=== PATIENT | male | born 1955 | race African-American/Black ===

== ENCOUNTER → 2016-07-09 | Outpatient (CLI) | payer BC ==
[~2016-07-09] MED LIST: ACET-1256 PO; CYAN100020 PO; FELO10TA2 PO; HYDR-4717 PO; LEVO150T PO; MRLP120 PO; SIMV20TA2 PO
--- NOTE | 2016-07-09 21:14 | DIAGNOSTIC IMAGING REPORT ---
RIGHT HAND MIN 3 VIEWS ROUTINE, LEFT HAND MIN 3 VIEWS ROUTINE CLINICAL HISTORY: Bilateral hand pain. Fall. COMPARISON STUDY: None. FINDINGS: No acute fracture or dislocation within the right or left hand. Mild soft tissue swelling within the thumbs. No radiopaque foreign bodies. IMPRESSION: No acute fracture or dislocation within the right or left hand. Electronically signed by: Jorje Phoenix M.D. 07/09/2016 9:12 PM Dictated Date/Time: 07/09/2016 9:07 PM
== END | disposition home or self-care (01) ==
LOC: C.RAD 20:38
PROVIDERS: ATTEND Family Medicine
DX: M79.641 Pain in right hand (principal); M79.642 Pain in left hand; W19.XXXA Unspecified fall, initial encounter

== ENCOUNTER → 2017-05-13 | Outpatient (CLI) | payer BC ==
--- NOTE | 2017-05-13 14:37 | DIAGNOSTIC IMAGING REPORT ---
RIGHT KNEE 2 VIEWS HISTORY: Right knee pain. COMPARISON: None. FINDINGS: There is no fracture or dislocation. No significant knee effusion. Mild patellofemoral osteoarthritis. Calcification adjacent to the lateral femoral condyle may be due to an old injury. This measures 1 cm. IMPRESSION: 1. No acute fracture or dislocation within the right knee. 2. Calcification adjacent to the lateral femoral condyle is nonspecific but may be due to an old injury. Electronically signed by: Jorje Phoenix M.D. 05/13/2017 2:35 PM Dictated Date/Time: 05/13/2017 2:34 PM
== END | disposition home or self-care (01) ==
LOC: C.RAD1850 14:04
DX: M25.561 Pain in right knee (principal); M25.861 Other specified joint disorders, right knee

== ENCOUNTER → 2017-06-01 | Day surgery (SDC) | payer BC, OTHER ==
[~2017-06-01] VITALS: Ht 172.7 cm; Wt 104.0 kg
[2017-06-01] VITALS (7 sets, daily range): BP systolic 80–101; BP diastolic 54–62; PULSE 58–73; TEMP 36.4–36.8; O2SAT 96–99; Ht 172.7 cm; Wt 104.0 kg
[~2017-06-01] MED LIST changes: +CLINDAMYCIN 600 MG/54 ML D5W IV SCH; +D5W AND 1/4NSS 1,000 ML IV SCH; +FENTANYL CITRATE INJ 50 MCG/1 ML 2 ML VIAL IV ONE; +FENTANYL CITRATE INJ 50 MCG/1 ML 2 ML VIAL ONE; +LIDOCAINE HCL 1% 20 ML VIAL INJ ONE; +MIDAZOLAM HCL 1 MG/ML 2ML VIAL IV ONE; +MIDAZOLAM HCL 1 MG/ML 2ML VIAL ONE; +OPTIRAY 300 IV ONE; +ORM MISCELLANEOUS MED XX ONE
--- NOTE | 2017-06-01 05:49 | History and Physical ---
History & Physical Date of Service Jun 01, 2017. History & Physical CC: End stage renal disease, malfunctioning left arm fistula HPI: Mr. Cary had a left arm fistula done two years prior to this. He is now having problems with the fistula at dialysis. The patient denies other complaints at this time including headaches, fevers, chills, dizziness, chest pain, shortness of breath, abdominal pain, nausea, vomiting, diarrhea, constipation, dysuria, hematuria, rest pain, claudication or other complaints. ALLERGIES: PENICILLIN. His home medications are reconciled in the chart and include the following: Felodipine, Flintstones chewable vitamins, hydralazine, MiraLax, pantoprazole, simvastatin, Synthroid and vitamin B12. His past medical history is positive for benign prostatic hyperplasia, chronic kidney disease stage IV, congestive heart failure, diabetes mellitus, diabetic retinopathy, gastroesophageal reflux disease, hyperlipidemia, hypertension, hypothyroidism, mitral regurgitation, morbid obesity. His past surgical history is positive for a laparoscopic sleeve gastrectomy, right tunnel release, partial colectomy. His social history is negative for tobacco, alcohol or drug use. The patient's family history is positive for diabetes in his brother, sister, father, mother, hypertension in his father. His review of systems is negative for fevers, sweats, or exercise intolerance. He does admit weight loss due to his recent surgery. The patient denies abnormal moles or rashes, vision changes, photophobia, ear pain, sinus problems or sore throat, cough, shortness of breath, hemoptysis or wheezing, chest pain, palpitations, edema or syncope, abdominal pain, nausea, vomiting, diarrhea, constipation, dysuria, hematuria. He denies abdominal pain, nausea, vomiting, diarrhea, constipation, dysuria, hematuria, muscle weakness, headaches, dizziness, numbness or seizures. On physical exam, his vital signs today were as follows: Blood pressure 140/70 with a heart rate of 71, oxygenation 98% on room air. Constitutional: In general, patient is an obese but healthy-appearing, well-nourished, well- developed middle-aged male in no acute distress. He ambulates without assistance and is active, alert and oriented x4 with normal recent and remote memory. His head is normocephalic and atraumatic. His eyes are EOMI. His ENT exam demonstrates no hearing loss, rhinorrhea or pharyngeal erythema. His neck was supple, nontender with midline trachea without masses or crepitus. His lung exam demonstrates no dyspnea. They are clear to auscultation bilaterally. His cardiovascular exam demonstrates a nondisplaced apical impulse with a regular rate and rhythm without significant murmur, gallops, lifts, or rubs. His peripheral pulses were full and equal in all extremities unless otherwise noted, specifically they are normal in his carotid, brachial, radial, femoral, posterior tibial and dorsalis pedis pulses. The patient demonstrates no bruits in his carotid, abdominal or femoral area. His abdomen was soft, nontender with normoactive bowel sounds in all 4 quadrants without guarding or rebound. His musculoskeletal exam demonstrates normal tone and strength for age. His bilateral upper extremities demonstrate no cyanosis, edema, clubbing, varicosities or ulcers with a left arm fistula with a thrill present. The patient's bilateral lower extremities do demonstrate trace edema but no cyanosis , varicosities, ulcerations or mottling. Neurologically, patient has a normal gait and station with grossly intact cranial nerves and grossly intact sensation. Assessment and Plan: Imp: Malfunctioning left arm fistula Plan: Patient admitted for a left upper extremity fistulogram with possible intervention. I have discussed the risks options and benefits of the procedure with the patient. The patient understands the risks options and benefits and agrees to the procedure.
--- NOTE | 2017-06-01 08:15 | Procedure Note ---
Pre-Mod Sedation Assessment General Date of Moderate Sedation: Jun 01, 2017. Vital Signs: Vital Signs Past 12 Hours Date Time Temp Pulse Resp B/P (MAP) Pulse Ox O2 Delivery O2 Flow Rate FiO2 06/01/17 07:52 36.8 73 101/57 99 Room Air 06/01/17 06:37 36.8 73 73 101/57 (72) 99 Room Air Pre-Sedation Airway Assessment Oral Cavity: WNL Short Thick Neck: No Hx of Sleep Apnea: No Smoking Status: Never Smoker Mallampati Classification: Class I ASA Classification: Class III Notes The planned sedation has been discussed with the patient and consent obtained. I have identified the patient, determined the appropriateness of sedation and have assessed the patient immediately prior to the procedure. All medicine(s) and interventions are by my order.
--- NOTE | 2017-06-01 08:15 | History & Physical Bridge Note ---
H&P Re-Evaluation Bridge Note: I have examined the patient, reviewed the History & Physical and in the interval since the performance of the History & Physical I have noted the following changes of clinical significance: No changes noted
--- NOTE | 2017-06-01 09:09 | [facility] Operative Report ---
Operative Report Operative Date Jun 01, 2017. Pre-Operative Diagnosis malfunctioning fistula Post-Operative Diagnosis same Procedure(s) Performed Fistulogram, Percutaneous Transluminal Angioplasty Venous, Moderate Concious Sedation [address] Delgadillo Card Cutter Helper Surgeon(s) Florinda Moser MD Estimated Blood Loss 3 ml Findings Proximal stenosis Specimens none Anesthesia Local with sedation Complication(s) None Disposition Indications This patient 62-year-old male with a left arm fistula. He was found to have a high pitched bruit. Histogram was recommended. I have discussed the risks options and benefits of the procedure with the patient. The patient understands the risks options and benefits and agrees to the procedure. Description of Procedure The patient was taken to the angiogram suite and placed in the supine position. The left arm was then prepped and draped in a sterile manner. Local anesthetic was administered and a percutaneous puncture was then made of the proximal portion of the left arm AV fistula using micropuncture technique. Micropuncture wire and sheath were then inserted. A fistulogram was then performed. Fistulogram showed a widely patent outflow of the left arm fistula. Long mild stenosis present of the proximal portion official from the arterial anastomosis to the puncture site. We decided to balloon this area. The micropuncture sheath was exchanged to a 5 [place] sheath. An 035 wire and a 4 x 40 balloon was inserted. The proximal arterial anastomosis and the proximal portion of the fistula were dilated with this balloon. Much better flow was seen at the end of the ballooning. Better thrill was felt. The sheath was there are the balloon and Wire were then removed . The sheath was then pulled and pressure was applied. Adequate hemostasis was obtained. The patient left the angiogram suite in good condition and tolerated the procedure well. I attest to the content of the Intraoperative Record and any orders documented therein. Any exceptions are noted below.
--- NOTE | 2017-06-01 09:09 | Procedure Note ---
Post-Moderate Sedation Plan General Date of Moderate Sedation Jun 01, 2017. Vital Signs: Vital Signs Past 12 Hours Date Time Temp Pulse Resp B/P (MAP) Pulse Ox O2 Delivery O2 Flow Rate FiO2 06/01/17 07:52 36.8 73 101/57 99 Room Air 06/01/17 06:37 36.8 73 73 101/57 (72) 99 Room Air Review - Discharge Plan Post Moderate Sedation Plan: On clinical assessment, the patient appears to have tolerated the conscious sedation without complications. Patient is recovering as anticipated. Patient will continue to be monitored by nursing and may be discharged when conscious sedation discharge criteria are met.
--- NOTE | 2017-06-01 09:11 | Discharge Instructions ---
Discharge Instructions Date of Service Jun 01, 2017. Visit Reason for Visit: Malfunctioning Left Arm Arteriovenous Fistula Discharge Discharge Diagnosis / Problem: Malfunctioning fistula Discharge Goals Goal(s): Therapeutic intervention Activity Recommendations Activity Limitations: per Instructions/Follow-up section Anesthesia . Post Anesthesia Instructions: If you have had General Anesthesia or IV Sedation: * Do not drive today. * Resume driving when surgeon permits. * Do not make important decisions or sign legal documents today. * Call surgeon for: 1. Temperature elevations greater than 101 degrees F. 2. Uncontrollable pain. 3. Excessive bleeding. 4. Persistent nausea and vomiting. 5. Medication intolerance (nausea, vomiting or rash). * For nausea and vomiting use only clear liquids such as: tea, soda, bouillon until nausea subsides, then gradually increase diet as tolerated. * If you have any concerns or questions, call your surgeon's office. If physician is unavailable and it is an emergency, call 911 or go to the nearest emergency room. . Instructions / Follow-Up Instructions / Follow-Up Call [phone] with any questions or concerns. SPECIAL CARE INSTRUCTIONS: Medications: * Continue to take your medications as directed. If you have been given a prescription for Plavix, please fill it immediately and take as directed. Incision Care: * Your puncture site may have some bruising and minor swelling for about one week. * You will have a small dressing covering your puncture site. You may remove the dressing after 24 hours and shower. You may let the warm soapy water run over it, but be sure to dry the puncture site well and keep it dry. * DO NOT IMMERSE THE INCISION IN A TUB/POOL/etc. UNTIL HEALED. * Puncture sites should be kept covered with a band-aid until it begins to heal. Restrictions: * Depending on whether you leg or arm was punctured to access the arteries, you will be required to lay flat, hold your arm still, or both, for about 4 hours after the procedure to prevent bleeding. * Limit your activity for the first 48 hours. You may walk and go up and down steps. Avoid excessive bending or movement at the puncture site. Possible Complications: * Excessive Swelling - after blood flow is improved you may notice increased swelling in the lower legs. This is a normal response. This usually depends on the amount of blockages in the leg, how long they have been there prior to your procedure and how much blood flow was restored. Elevating your legs will help to improve this. Please notify our office ([phone] ) if the swelling does not go away after lying in bed overnight. * Infection/Drainage/Bleeding - Drainage or bleeding from the puncture site should be minimal. If you have excessive bleeding or drainage, call our office ([phone]) right away. * Pain - You may experience some mild pain or soreness at your puncture site. If your pain does not improve, please contact our office ([phone]). Call your doctor and seek emergent treatment if you develop: * Temperature above 101 degrees * Any fever or chills * Any redness or purulent drainage from the puncture site * Any new dusky/blue colored toes or feet with coolness or sharp or aching pain. SKIN IRRITATION: * You may experience some redness and/or swelling in the area where radiation was administered. If any skin irritation occurs, please contact your family physician. FOLLOW UP VISIT: Keep any scheduled doctor appointments. Diet Recommendations Recommended Home Diet: resume previous diet Procedures Procedures Performed: Fistulogram, Percutaneous Transluminal Angioplasty Venous, Moderate Concious Sedation 0843 to 0900 Pending Studies Studies pending at discharge: no Medical Emergencies . Who to Call and When: Medical Emergencies: If at any time you feel your situation is an emergency, please call 911 immediately. . Non-Emergent Contact Non-Emergency issues call your: Surgeon . . "Provider Documentation" section prepared by Bob Delgadillo. .
== END | disposition home or self-care (01) ==
LOC: C.ACU 06:01
PROVIDERS: ATTEND Surgery Vascular Surgery
DX: T82.9XXA Unspecified complication of cardiac and vascular prosthetic device, implant and graft, initial encounter (principal); Y83.8 Other surgical procedures as the cause of abnormal reaction of the patient, or of later complication, without mention of misadventure at the time of the procedure; N18.6 End stage renal disease; I12.0 Hypertensive chronic kidney disease with stage 5 chronic kidney disease or end stage renal disease; Z88.0 Allergy status to penicillin; Z79.899 Other long term (current) drug therapy; N40.0 Benign prostatic hyperplasia without lower urinary tract symptoms; E11.22 Type 2 diabetes mellitus with diabetic chronic kidney disease; K21.9 Gastro-esophageal reflux disease without esophagitis; E78.5 Hyperlipidemia, unspecified; E03.9 Hypothyroidism, unspecified; E66.01 Morbid (severe) obesity due to excess calories; Z90.3 Acquired absence of stomach [part of]; Z98.890 Other specified postprocedural states; Z83.3 Family history of diabetes mellitus; Z82.49 Family history of ischemic heart disease and other diseases of the circulatory system

== ENCOUNTER → 2017-06-14 | Outpatient (CLI) | payer BC, OTHER ==
[~2017-06-14] MED LIST changes: -CLINDAMYCIN 600 MG/54 ML D5W IV SCH; -CYAN100020 PO; -D5W AND 1/4NSS 1,000 ML IV SCH; -FENTANYL CITRATE INJ 50 MCG/1 ML 2 ML VIAL IV ONE; -FENTANYL CITRATE INJ 50 MCG/1 ML 2 ML VIAL ONE; -HYDR-4717 PO; -LIDOCAINE HCL 1% 20 ML VIAL INJ ONE; -MIDAZOLAM HCL 1 MG/ML 2ML VIAL IV ONE; -MIDAZOLAM HCL 1 MG/ML 2ML VIAL ONE; -OPTIRAY 300 IV ONE; -ORM MISCELLANEOUS MED XX ONE
--- NOTE | 2017-06-14 13:00 | DIAGNOSTIC IMAGING REPORT ---
CHEST 2 VIEWS ROUTINE CLINICAL HISTORY: 62 years-old Male presenting with STERNAL PAIN. TECHNIQUE: PA and lateral views of the chest were obtained. COMPARISON: 10/24/[address] of the abdomen from 2007. FINDINGS: Atherosclerosis of aortic arch. Cardiac silhouette enlarged. Multilevel lung volumes with hypoventilatory changes. Left basilar opacity with less pronounced right basilar opacity. Degenerative changes of the thoracic spine. Apparent pneumoperitoneum. IMPRESSION: 1. Apparent free air under the diaphragm. Correlate with recent surgical history. If no abdominal surgery has occurred, findings suspicious for perforated hollow viscus. 2. Left greater than right bibasilar opacities favor represent atelectasis. Less likely diagnostic considerations include aspiration or edema. 3. Cardiomegaly although this may be due to poor inspiratory effort. Electronically signed by: Carroll Shaver M.D. 06/14/2017 12:59 PM Dictated Date/Time: 06/14/2017 12:57 PM
== END | disposition home or self-care (01) ==
LOC: C.RAD 12:43
PROVIDERS: ATTEND Nurse Practitioner
DX: J98.11 Atelectasis (principal); J98.6 Disorders of diaphragm; I51.7 Cardiomegaly

== ENCOUNTER 2017-08-27 13:32 | Inpatient (IN) | payer OTHER ==
[~2017-08-27] VITALS: Ht 172.7 cm; Wt 100.0 kg
[2017-08-27] MEDS ORDERED: GI COCKTAIL PO STA ×2 (13:56→16:52)
[2017-08-27] MEDS ORDERED: FAMOTIDINE 20MG/5ML IV PUSH IV STA (13:56)
[2017-08-27] MEDS ORDERED: ALBUT/IPRATROP 3MG/0.5MG NEB 3 ML VIAL INH STA (13:56)
[2017-08-27] MEDS ORDERED: SODIUM CHLORIDE 0.9% 500ML 500 ML IV STA (13:56)
[2017-08-27 14:07] LABS: BASO % 0.2 %; BASO ABS # 0.02 K/uL (0-0.2); EOS % 0.4 %; EOS ABS # 0.04 K/uL (0-0.5); HEMATOCRIT 38.6 % (42-52); HEMOGLOBIN 13.2 g/dL (14.0-18.0); IG# 0.06 K/uL (0.00-0.02); MEAN CELL VOLUME 97.7 fL (80-100); MEAN CORPUSCULAR HEMOGLOBIN 33.4 pg (25-34); MEAN CORPUSCULAR HGB CONC 34.2 g/dl (32-36); MEAN PLATELET VOLUME 10.5 fL (7.4-10.4); NEUT % 75.7 %; NEUT ABS # 6.91 K/uL (1.4-6.5); PLATELET COUNT 299 K/uL (130-400); RED CELL DISTRIBUTION WIDTH CV 15.5 % (11.5-14.5); RED CELL DISTRIBUTION WIDTH SD 54.1 fL (36.4-46.3); WHITE BLOOD COUNT 9.13 K/uL (4.8-10.8)
[2017-08-27] MEDS ORDERED: DOXY100C2 PO (14:11)
[2017-08-27] MEDS ORDERED: RANI150T85 PO (14:12)
[2017-08-27] MEDS ORDERED: B-CO1CAP17 PO (14:12)
--- NOTE | 2017-08-27 14:15 | DIAGNOSTIC IMAGING REPORT ---
CHEST ONE VIEW PORTABLE CLINICAL HISTORY: Atypical chest pain. Syncope. COMPARISON STUDY: 06/14/2017 FINDINGS: The cardiac and mediastinal contours are normal. There is no evidence of focal pulmonary consolidation. There is no evidence of failure. No pleural effusions are visualized.[ IMPRESSION: No active disease in the chest. Electronically signed by: Kush Goldsmith M.D. 08/27/2017 2:14 PM Dictated Date/Time: 08/27/2017 2:14 PM
[2017-08-27 14:32] LABS: ALBUMIN 3.4 gm/dl (3.4-5.0); ALKALINE PHOSPHATASE 113 U/L (45-117); ALT/SGPT 67 U/L (12-78); AST/SGOT 42 U/L (15-37); BLOOD UREA NITROGEN 80 mg/dl (7-18); CALCIUM 9.5 mg/dl (8.5-10.1); CARBON DIOXIDE 25 mmol/L (21-32); GLUCOSE 162 mg/dl (70-99); LIPASE 351 U/L (73-393); POTASSIUM 4.8 mmol/L (3.5-5.1); SODIUM 129 mmol/L (136-145); TOTAL PROTEIN 8.2 gm/dl (6.4-8.2)
[2017-08-27 15:09] LABS: INFLUENZA B ANTIGEN Neg for Influ B (NEG)
[2017-08-27] MEDS ORDERED: SODIUM CHLORIDE 0.9% 1000ML 1,000 ML IV STA (16:31)
[2017-08-27] MEDS ORDERED: OPTIRAY 320 IV PRN (16:45)
[2017-08-27] MEDS ORDERED: ALUMINUM/MAGNESIUM SUSP 30 ML UDC ONE (16:55)
[2017-08-27] MEDS ORDERED: LIDOCAINE HCL 2% VISC SOLN 20 ML UDC ONE (16:55)
[2017-08-27] MEDS ORDERED: RANITIDINE HCL 50 MG/100 ML D5W IV STA (18:07)
--- NOTE | 2017-08-27 18:11 | EMERGENCY ROOM VISIT NOTE ---
History Report prepared by Lindsey: Shahram Peterson Under the Supervision of: Dr. Rodrigo Claudio M.D. First contact with patient: 13:41 Chief Complaint: WEAKNESS Stated Complaint: FAINTING, CAN'T SWALLOW/DRINK,LOST 14LBS LAST WEEK Nursing Triage Summary: pt to the ED with c/o being sent here by MD doty for c/o decreased po intake for 1.5 wks and near syncope has had gastric sleeve and concerned for stricture, did have yogurt and toast today no c/o pain gets more dizzy with movement does peritoneal dialysis every day History of Present Illness The patient is a 62 year old male who presents to the Emergency Room with complaints of lightheadedness, weakness, and difficulty swallowing for the past 10 days. Reports 15lbs weight loss during this time and has continued his daily peritoneal dialysis as usual without any modifications. He meets monthly with his ply cutter and is due to meet next week. Patient reports that it has become so painful and difficult to swallow that he has only been sipping small amounts of water. Denies f/c, cough, congestion, n/v, diarrhea, CP, SOB, GARCIA. Source of History: patient Onset: 10 days ago Position: head, neck Symptom Intensity: moderate Quality: other (weakness/lightheadedness) Timing: constant Modifying Factors (Worsening): exertion, eating, drinking, movement Modifying Factors (Relieving): rest Associated Symptoms: + sorethroat, + neck pain, + fatigue, + weakness, No fevers, No chills, No headache, No diaphoresis, No cough, No chest pain, No SOB , No nausea, No vomiting, No abdominal pain Review of Systems See HPI for pertinent positives and negatives. A total of ten systems were reviewed and were otherwise negative. Past Medical & Surgical Medical Problems: (1) Acute renal failure (2) Calculus Of Kidney (3) Diab Rebecca Wo Comp Type Ii Or Nos/Not Uncontrolled (4) Diabetic Retinopathy Nos (5) Diverticulosis Colon (W/O Ment Of Hemorrhage) (6) End Stage Renal Disease (7) Esophageal Reflux (8) Hyperlipidemia Nec/Nos (9) Hypertension Nos (10) Hypothyroidism Nos (11) Lumbago (12) Morbid Obesity (13) Odynophagia Family History Diabetes mellitus Hypertension Social History Smoking Status: Never Smoker Alcohol Use: none Marital Status: Occupation Status: employed Current/Historical Medications Scheduled Doxycycline Hyclate (Vibramycin), 100 MG PO DAILY Felodipine (Plendil), 10 MG PO DAILY Levothyroxine Sodium (Synthroid), 150 MCG PO DAILY Polyethylene (Miralax), 17 GM PO DAILY Ranitidine (Zantac), 150 MG PO BID Simvastatin (Zocor), 20 MG PO QPM Vitamin B Cmplx/Vitc/Folic Ac (Nephrocaps), 1 CAP PO DAILY Scheduled PRN Acetaminophen (Tylenol), 1,000 MG PO Q6 PRN for Pain Allergies Coded Allergies: Cephalosporins (Verified Allergy, Unknown, KEFLEX, 06/01/17) Penicillins (Verified Allergy, Unknown, ALSO AUGMENTIN, 06/01/17) Physical Exam Vital Signs Date Time Temp Pulse Resp B/P (MAP) Pulse Ox O2 Delivery O2 Flow Rate FiO2 08/27/17 17:48 84 21 100 08/27/17 17:18 86 23 08/27/17 16:48 82 15 100 08/27/17 16:36 92 20 82/64 99 Room Air 08/27/17 16:36 82/64 08/27/17 16:18 89 12 08/27/17 15:48 92 16 08/27/17 15:18 93 10 08/27/17 15:13 95 18 72/54 97 Room Air 08/27/17 15:12 91 23 08/27/17 14:27 89 19 08/27/17 14:22 89 10 08/27/17 14:19 93 08/27/17 14:17 93 13 08/27/17 14:12 94 30 08/27/17 14:09 96 Room Air 08/27/17 14:07 96 10 08/27/17 14:02 94 15 08/27/17 13:34 36.5 101 20 66/49 96 Physical Exam GENERAL: Awake, alert, fatigued-appearing, in no distress HENT: Normocephalic, atraumatic. Oropharynx unremarkable. Dry mucus membranes. EYES: Normal conjunctiva. Sclera non-icteric. NECK: Supple. No nuchal rigidity. FROM. No JVD. RESPIRATORY: Clear to auscultation. CARDIAC: Regular rate, normal rhythm. Extremities warm and well perfused. Pulses equal. ABDOMEN: Soft, obese. No tenderness to palpation. No rebound or guarding. No masses. PD site is clean, dry, and intact without signs of infection. RECTAL: Deferred. MUSCULOSKELETAL: Chest examination reveals no tenderness. The back is symmetrical on inspection without obvious abnormality. There is no CVA tenderness to palpation. No joint edema. LOWER EXTREMITIES: Calves are equal size bilaterally and non-tender. No edema. No discoloration. NEURO: Normal sensorium. No sensory or motor deficits noted. SKIN: No rash or jaundice noted. Medical Decision & Procedures ER Provider Diagnostic Interpretation: X-ray: Per my interpretation, radiologist review. CHEST ONE VIEW PORTABLE CLINICAL HISTORY: Atypical chest pain. Syncope. COMPARISON STUDY: 06/14/2017 FINDINGS: The cardiac and mediastinal contours are normal. There is no evidence of focal pulmonary consolidation. There is no evidence of failure. No pleural effusions are visualized.[ IMPRESSION: No active disease in the chest. Electronically signed by: Kush Goldsmith M.D. 08/27/2017 2:14 PM Dictated Date/Time: 08/27/2017 2:14 PM Laboratory Results 08/27/17 13:45 Red Blood Count 3.95, Mean Corpuscular Volume 97.7, Mean Corpuscular Hemoglobin 33.4, Mean Corpuscular Hemoglobin Concent 34.2, Mean Platelet Volume 10.5, Neutrophils (%) (Auto) 75.7, Lymphocytes (%) (Auto) 12.0, Monocytes (%) (Auto) 11.0, Eosinophils (%) (Auto) 0.4, Basophils (%) (Auto) 0.2, Neutrophils # (Auto ) 6.91, Lymphocytes # (Auto) 1.10, Monocytes # (Auto) 1.00, Eosinophils # (Auto ) 0.04, Basophils # (Auto) 0.02 08/27/17 13:45 Test 08/27/17 13:45 08/27/17 14:20 White Blood Count 9.13 K/uL (4.8-10.8) Red Blood Count 3.95 M/uL (4.7-6.1) Hemoglobin 13.2 g/dL (14.0-18.0) Hematocrit 38.6 % (42-52) Mean Corpuscular Volume 97.7 fL (80-100) Mean Corpuscular Hemoglobin 33.4 pg (25-34) Mean Corpuscular Hemoglobin Concent 34.2 g/dl (32-36) Platelet Count 299 K/uL (130-400) Mean Platelet Volume 10.5 fL (7.4-10.4) Neutrophils (%) (Auto) 75.7 % Lymphocytes (%) (Auto) 12.0 % Monocytes (%) (Auto) 11.0 % Eosinophils (%) (Auto) 0.4 % Basophils (%) (Auto) 0.2 % Neutrophils # (Auto) 6.91 K/uL (1.4-6.5) Lymphocytes # (Auto) 1.10 K/uL (1.2-3.4) Monocytes # (Auto) 1.00 K/uL (0.11-0.59) Eosinophils # (Auto) 0.04 K/uL (0-0.5) Basophils # (Auto) 0.02 K/uL (0-0.2) RDW Standard Deviation 54.1 fL (36.4-46.3) RDW Coefficient of Variation 15.5 % (11.5-14.5) Immature Granulocyte % (Auto) 0.7 % Immature Granulocyte # (Auto) 0.06 K/uL (0.00-0.02) Prothrombin Time 12.1 SECONDS (9.0-12.0) Prothromb Time International Ratio 1.2 (0.9-1.1) Anion Gap 16.0 mmol/L (3-11) Est Creatinine Clear Calc Drug Dose 5.7 ml/min Estimated GFR () 3.4 Estimated GFR (Non- 3.0 BUN/Creatinine Ratio 5.3 (10-20) Osmolality 314 mOsm/kg (280-300) Calcium Level 9.5 mg/dl (8.5-10.1) Phosphorus Level 8.0 mg/dl (2.5-4.9) Magnesium Level 2.9 mg/dl (1.8-2.4) Total Bilirubin 1.2 mg/dl (0.2-1) Direct Bilirubin 0.1 mg/dl (0-0.2) Aspartate Amino Transf (AST/SGOT) 42 U/L (15-37) Alanine Aminotransferase (ALT/SGPT) 67 U/L (12-78) Alkaline Phosphatase 113 U/L (45-117) Troponin I < 0.015 ng/ml (0-0.045) Total Protein 8.2 gm/dl (6.4-8.2) Albumin 3.4 gm/dl (3.4-5.0) Lipase 351 U/L (73-393) Influenza Type A Antigen Neg for Influ A (NEG) Influenza Type B Antigen Neg for Influ B (NEG) Laboratory results reviewed by me Medications Administered Medications (Trade) Dose Ordered Sig/Maranda Route Start Time Stop Time Status Last Admin Dose Admin Sodium Chloride 500 ml @ 999 mls/hr Q31M STAT IV 08/27/17 13:56 08/27/17 14:26 DC 08/27/17 14:15 999 MLS/HR Albuterol/ Ipratropium (Duoneb) 3 ml NOW STAT INH 08/27/17 13:56 08/27/17 14:02 DC 08/27/17 14:15 3 ML Sodium Chloride 1,000 ml @ 999 mls/hr Q1H1M STAT IV 08/27/17 16:31 08/27/17 17:31 DC 08/27/17 16:31 999 MLS/HR Al Hydroxide/Mg Hydroxide (Maalox Susp) 30 ml STK-MED ONCE .ROUTE 08/27/17 16:55 08/27/17 16:56 DC 08/27/17 17:04 30 ML Lidocaine HCl (Viscous Lidocaine 2% Soln) 20 ml STK-MED ONCE .ROUTE 08/27/17 16:55 08/27/17 16:56 DC 08/27/17 17:03 10 ML Ranitidine HCl (zANTac IV) 50 mg NOW STAT IV 08/27/17 18:07 08/27/17 18:09 DC 08/27/17 18:50 50 MG ECG Per My Interpretation Indication: weakness Rate (beats per minute): 91 Rhythm: normal sinus Findings: no acute ischemic change, other (normal axis) ED Course 1341: The patient was evaluated in room B12A. A complete history and physical exam was performed. 1634: I reevaluated the patient. The patient was resting comfortably. I discussed his current exam findings with him. 1658: Upon reexamination, the patient was resting comfortably. I discussed the test results and treatment plan with him. The patient will be evaluated for further management. 1739: I discussed the patient's case with Dr. Mathew, [facility] Hospitalist. The patient will be evaluated for further management. Medical Decision I reviewed the patient's past medical history, medications, and the nursing notes as described above. Differential diagnoses include: pneumonia, bronchitis, ACS, CHF, dehydration, electrolyte abnormalities, esophageal stricture, esophagitis, duodenitis, bowel obstruction. The patient is a 62-year-old gentleman with a past medical history of end-stage renal disease on peritoneal dialysis, history of gastric sleeve who presents emergency department with generalized weakness over the past couple of weeks in the setting of developing symptoms of this dysphagia where he feels burning when eating as well as the sensation of food getting stuck and thus has had decreased oral intake subsequent 15 pound weight loss per hpi. Patient was seen by his PCP who sent the patient to the ED for evaluation for concern of possible esophageal stricture. On arrival the patient is fatigued appearing but in no acute distress, afebrile, with systolic blood pressure in the 70s but otherwise mentating normally. Blood pressure responding to gentle IV fluid hydration in the setting of the patient's end-stage renal disease. A barium swallow study was attempted however the patient did not tolerated as he became lightheaded upon sitting up. Otherwise, labs are consistent with dehydration in the setting of the patient's 15 pound weight loss likely related to his decreased oral intake and not changing his peritoneal dialysis removal. I discussed with the patient his end-stage renal disease and he confirms that he has not urinated for some time and there is no expectation that his renal function will ever recover thus we agreed that we will proceed with a CT with both IV and oral contrast. CT performed to assess esophagus and patient's gastric sleeve which was unremarkable. Otherwise patient feeling improved with IV fluid hydration. However given this patient's end-stage renal disease it is reasonable to admit the patient for continued hydration while avoiding fluid overload. Case was discussed with Dr. Mathew, [facility] hospitalist who will admit the patient for further management. Medication Reconcilliation Current Medication List: was personally reviewed by me Blood Pressure Screening Patient's blood pressure: Low blood pressure Monitored by hospitalist. Consults Time Called: 173 Consulting Physician: Dr. Mathew, [facility] Hospitalist Returned Call: [phone] I discussed the patient's case with Dr. Mathew [facility] Hospitalist. The patient will be evaluated for further management. Impression Primary Impression: Near syncope Additional Impressions: Hyponatremia Dehydration Dysphagia Scribe Attestation The scribe's documentation has been prepared under my direction and personally reviewed by me in its entirety. I confirm that the note above accurately reflects all work, treatment, procedures, and medical decision making performed by me. Departure Information Dispostion Being Evaluated By Hospitalist Referrals Jeff Brown M.D. (PCP) Patient Instructions [facility] Problem Qualifiers
[2017-08-27] MEDS ORDERED: ACETAMINOPHEN 500 MG TAB PO PRN (18:45)
[2017-08-27] MEDS ORDERED: ONDANSETRON INJ 2 MG/ML 2 ML VIAL IV PRN (19:15)
[2017-08-27] MEDS ORDERED: POLYETHYLENE (MIRALAX) 17 GM PACK PO PRN (19:15)
[2017-08-27] MEDS ORDERED: ALUMINUM/MAGNESIUM/SIMETH (MAALOX MAX) 30 ML UDC PO PRN (19:15)
[2017-08-27] MEDS ORDERED: MAGNESIUM HYDROXIDE SUSP 30 ML UDC PO PRN (19:15)
[2017-08-27] MEDS ORDERED: ACETAMINOPHEN 325 MG TAB PO PRN (19:15)
--- NOTE | 2017-08-27 19:21 | History and Physical ---
History & Physical Date & Time of Service: Aug 27, 2017 at 19:14 Chief Complaint: Fainting, Can't Swallow/Drink,Lost 14LBS Last Week Primary Care Physician: Jeff Brown M.D. History of Present Illness 62-year-old peritoneal dialysis patient who comes in with difficulty swallowing painful swallowing and decreased oral intake. He is clinically dehydrated has marked acute on chronic renal failure with creatinine of 15 sodium of 129 but preserved potassium and bicarbonate. Patient reportedly about 2 weeks ago was given doxycycline for bronchitis and right above that is when the symptoms began he also does have the added history of having a gastric sleeve but is not a problems with this since was placed [address] [facility]. The patient does not make any urine output typically has indwelling 14-16 hours overnight with his peritoneal dialysis his dialysis fluid has been clear he has not had any abdominal pain fevers or chills. He does have occasional reflux but has never had an endoscopy as far he is aware Family History Diabetes mellitus Hypertension Social History Smoking Status: Never Smoker Marital Status: Housing status: lives with family Occupational Status: employed Immunizations History of Influenza Vaccine: Yes History of Tetanus Vaccine?: Unknown History of Pneumococcal: No History of Hepatitis B Vaccine: No Allergies Coded Allergies: Cephalosporins (Verified Allergy, Unknown, KEFLEX, 06/01/17) Penicillins (Verified Allergy, Unknown, ALSO AUGMENTIN, 06/01/17) Home Medications Scheduled Doxycycline Hyclate (Vibramycin), 100 MG PO DAILY Felodipine (Plendil), 10 MG PO DAILY Levothyroxine Sodium (Synthroid), 150 MCG PO DAILY Polyethylene (Miralax), 17 GM PO DAILY Ranitidine (Zantac), 150 MG PO BID Simvastatin (Zocor), 20 MG PO QPM Vitamin B Cmplx/Vitc/Folic Ac (Nephrocaps), 1 CAP PO DAILY Scheduled PRN Acetaminophen (Tylenol), 1,000 MG PO Q6 PRN for Pain Review of Systems ROS: well nourished well developed. No double vision blurry vision Painful swallowing with difficulty taking oral sustenance because of it No palpitations, chest pain or pressure No Wheezing or breathing issues No abdominal pain nausea vomiting diarrhea patient has lost weight he said any problems with his peritoneal catheter Patient does not produce any urine and denies any changes in color of his peritoneal dialysis fluid No focal joint pain or muscle pain No skin rashes or oral lesions No unusual bruising or bleeding No focused back pain or numbness or loss of strength No changes in memory or confusion Physical Exam Vital Signs Date Time Temp Pulse Resp B/P (MAP) Pulse Ox O2 Delivery O2 Flow Rate FiO2 08/27/17 17:48 84 21 100 08/27/17 17:18 86 23 08/27/17 16:48 82 15 100 08/27/17 16:36 92 20 82/64 99 Room Air 08/27/17 16:36 82/64 08/27/17 16:18 89 12 08/27/17 15:48 92 16 08/27/17 15:18 93 10 08/27/17 15:13 95 18 72/54 97 Room Air 08/27/17 15:12 91 23 08/27/17 14:27 89 19 08/27/17 14:22 89 10 08/27/17 14:19 93 08/27/17 14:17 93 13 08/27/17 14:12 94 30 08/27/17 14:09 96 Room Air 08/27/17 14:07 96 10 08/27/17 14:02 94 15 08/27/17 13:34 36.5 101 20 66/49 96 General Appearance: WD/WN, + moderate distress Head: normocephalic, atraumatic Eyes: normal inspection, sclerae normal Neck: supple Respiratory/Chest: chest non-tender, lungs clear, normal breath sounds Cardiovascular: regular rate, rhythm, no murmur Abdomen/GI: normal bowel sounds, non tender, soft Extremities/Musculoskelatal: no pedal edema, normal range of motion Neurologic/Psych: alert, oriented x 3 Skin: normal color, warm/dry, + pertinent finding Diagnostics Laboratory Results Results Past 24 Hours Test 08/27/17 13:45 08/27/17 14:20 Range/Units White Blood Count 9.13 4.8-10.8 K/uL Red Blood Count 3.95 4.7-6.1 M/uL Hemoglobin 13.2 14.0-18.0 g/dL Hematocrit 38.6 42-52 % Mean Corpuscular Volume 97.7 80-100 fL Mean Corpuscular Hemoglobin 33.4 25-34 pg Mean Corpuscular Hemoglobin Concent 34.2 32-36 g/dl Platelet Count 299 130-400 K/uL Mean Platelet Volume 10.5 7.4-10.4 fL Neutrophils (%) (Auto) 75.7 % Lymphocytes (%) (Auto) 12.0 % Monocytes (%) (Auto) 11.0 % Eosinophils (%) (Auto) 0.4 % Basophils (%) (Auto) 0.2 % Neutrophils # (Auto) 6.91 1.4-6.5 K/uL Lymphocytes # (Auto) 1.10 1.2-3.4 K/uL Monocytes # (Auto) 1.00 0.11-0.59 K/uL Eosinophils # (Auto) 0.04 0-0.5 K/uL Basophils # (Auto) 0.02 0-0.2 K/uL RDW Standard Deviation 54.1 36.4-46.3 fL RDW Coefficient of Variation 15.5 11.5-14.5 % Immature Granulocyte % (Auto) 0.7 % Immature Granulocyte # (Auto) 0.06 0.00-0.02 K/uL Sodium Level 129 136-145 mmol/L Potassium Level 4.8 3.5-5.1 mmol/L Chloride Level 88 98-107 mmol/L Carbon Dioxide Level 25 21-32 mmol/L Anion Gap 16.0 3-11 mmol/L Blood Urea Nitrogen 80 7-18 mg/dl Creatinine 15.10 0.60-1.40 mg/dl Est Creatinine Clear Calc Drug Dose 5.7 ml/min Estimated GFR () 3.4 Estimated GFR (Non- 3.0 BUN/Creatinine Ratio 5.3 10-20 Random Glucose 162 70-99 mg/dl Osmolality 314 280-300 mOsm/kg Calcium Level 9.5 8.5-10.1 mg/dl Phosphorus Level 8.0 2.5-4.9 mg/dl Magnesium Level 2.9 1.8-2.4 mg/dl Total Bilirubin 1.2 0.2-1 mg/dl Direct Bilirubin 0.1 0-0.2 mg/dl Aspartate Amino Transf (AST/SGOT) 42 15-37 U/L Alanine Aminotransferase (ALT/SGPT) 67 12-78 U/L Alkaline Phosphatase 113 45-117 U/L Troponin I < 0.015 0-0.045 ng/ml Total Protein 8.2 6.4-8.2 gm/dl Albumin 3.4 3.4-5.0 gm/dl Lipase 351 73-393 U/L Influenza Type A Antigen Neg for Influ A NEG Influenza Type B Antigen Neg for Influ B NEG CXR normal other (Sinus sinus rhythm low voltage nearing AV block type I) Impression Assessment and Plan 62-year-old male who is on peritoneal dialysis for chronic kidney disease presents with acute on chronic kidney disease odontophagia and weight loss Regarding his acute on chronic kidney disease I spoke to Dr. Marques the patient' s paving foreman he recommends holding peritoneal dialysis this evening and hydrating him with normal saline at 100 and our he did not feel we needed to check his vacillate fluid output at this time as he has no signs or symptoms of infection and since he has no abnormalities of his potassium or bicarbonate he feels comfortable hydrating him for the next 24 hours or so he will see the patient in the morning Odynophagia this may be pill esophagitis from starting doxycycline the patient be given Carafate and a Protonix with a GI consultation to consider evaluation by endoscopy. The patient is currently pending a contrast CT scan it is noted the patient does have a gastric sleeve Hypothyroidism the patient's central be considered converted to IV as he is having difficulty swallowing pills in general The patient is hypotensive likely from volume loss by not taking in enough and having dialysis late from his peritoneal dialysis removed fluid we will hold his antihypertensive medicines at this time DVT prevention is heparin therapy Resuscitation Status VTE Prophylaxis Will order VTE Prophylaxis: Yes
--- NOTE | 2017-08-27 19:22 | DIAGNOSTIC IMAGING REPORT ---
(CHEST) THORAX WITH CLINICAL HISTORY: 62 years-old Male presenting with chest pain with swallowing. TECHNIQUE: Multidetector CT imaging of the chest was performed without the use of intravenous contrast. IV contrast: 94 mL of Optiray 320. A dose lowering technique was used consistent with the principles of ALARA (as low as reasonably achievable). COMPARISON: Chest x-ray performed earlier the same day. CT DOSE (mGy.cm): The estimated cumulative dose is 3442.[address] scans.. FINDINGS: Reception Interviewer topogram: Unremarkable. On soft tissue windows, normal thyroid and thoracic inlet. No axillary, supraclavicular, hilar, or mediastinal lymphadenopathy. Atherosclerosis of the aorta. Mild multichamber enlargement of the heart. Coronary artery calcification. No pericardial or pleural effusion. Postsurgical changes of gastric sleeve procedure. Cholelithiasis. Free intraperitoneal gas. No gas along the course of the esophagus. On lung windows, minimal dependent changes likely atelectasis. No other focal nodule or infiltrate. Airways patent. On bone windows, degenerative changes of the spine. IMPRESSION: 1. Free intraperitoneal gas partially visualized. Please see separately dictated CT of the abdomen or pelvis. 2. No acute intrathoracic pathology. The report will be called/faxed according to standard departmental protocol. Electronically signed by: Carroll Shaver M.D. 08/27/2017 7:21 PM Dictated Date/Time: 08/27/2017 7:18 PM
--- NOTE | 2017-08-27 19:29 | DIAGNOSTIC IMAGING REPORT ---
ABD/PELVIS IV AND ORAL CONT CLINICAL HISTORY: 62 years-old Male presenting with epigastric pain nausea. TECHNIQUE: Multidetector CT of the abdomen and pelvis was performed after the administration of oral and intravenous contrast. IV contrast: 94 mL of Optiray 320. A dose lowering technique was used consistent with the principles of ALARA (as low as reasonably achievable). COMPARISON: 12/16/2007. CT DOSE (mGy.cm): The estimated cumulative dose is 3442.91 mGy.cm. FINDINGS: Dba topogram: Unremarkable. Lung bases: Minimal basilar opacities, likely atelectasis. Multichamber enlargement of the heart. Coronary artery calcification. No pericardial or pleural effusion. Liver: Normal morphology. No liver lesion. Patent hepatic vasculature. Biliary: No intrahepatic or extrahepatic biliary ductal dilatation. Gallbladder contains gallstones. Pancreas: Mild parenchymal atrophy. Spleen: Normal. Adrenal glands: Subcentimeter nodule in the right adrenal gland new from prior exam, indeterminate. Left adrenal gland normal. Kidneys and ureters: Extensive atrophy of the bilateral kidneys. No hydronephrosis. Hypodense lesion in the medial aspect of the interpolar region of the left kidney indeterminate but likely simple cyst. Bladder: Incompletely evaluated secondary to underdistention. Pelvic organs: Prostate enlargement likely secondary to benign prostatic hyperplasia. Bowel: Oral contrast has transited to the rectum. Anastomotic suture lines evident in the region of the upper rectum likely indicating prior sigmoidectomy. Few diverticula in the distal descending colon. No extraluminal oral contrast is evident. The appendix is normal. No bowel obstruction. Postsurgical changes of gastric sleeve procedure. Peritoneal cavity: Free intraperitoneal gas evident primarily in the right upper quadrant. A surgical drain terminates in the right paracolic gutter. This may indicate recent surgical intervention and expected postsurgical intraperitoneal gas. Lymph nodes: No enlarged lymph nodes in the abdomen or pelvis. Vasculature: Atherosclerosis of the normal caliber abdominal aorta. IVC patent. Abdominal wall: No fluid along the course of the right anterior abdominal drain. Musculoskeletal: Degenerative changes of the spine. Bilateral pars defects of L5. IMPRESSION: 1. Free intraperitoneal gas may relate to recent surgery given the presence of a right paracolic gutter surgical drain. Correlate with recent surgical history. 2. Postsurgical changes of sigmoidectomy with colocolonic anastomosis. No bowel obstruction or extraluminal oral contrast. 3. Subcentimeter indeterminate right adrenal nodule new since 2007. The report will be called/faxed according to standard departmental protocol. Electronically signed by: Carroll Shaver M.D. 08/27/2017 7:28 PM Dictated Date/Time: 08/27/2017 7:21 PM
--- NOTE | 2017-08-27 19:32 | DIAGNOSTIC IMAGING REPORT ---
SOFT TISSUE NECK WITH CLINICAL HISTORY: 62 years-old Male presenting with dysphagia. TECHNIQUE: Multidetector CT of the neck was performed after the administration of intravenous contrast. IV contrast: 94 mL of Optiray 320. A dose lowering technique was used consistent with the principles of ALARA (as low as reasonably achievable). COMPARISON: None. CT DOSE (mGy.cm): The estimated cumulative dose is 3442.91 inclusive of multiple additional CT scans. FINDINGS: Pricing Coordinator topogram: Unremarkable. Extensive mucosal thickening and layering fluid in the bilateral maxillary sinuses. Mucosal thickening in anterior ethmoid air cells. Layering fluid in the sphenoid sinuses. The nasal cavity, nasopharynx, oropharynx, hypopharynx, larynx are patent. No effacement of the valleculae or piriform sinuses. No suspicious enhancing nodular mass. No lymphadenopathy. Patent vasculature with left dominant vertebral artery. Limited intracranial evaluation within normal limits. Orbits normal. Degenerative changes at the atlantodental articulation. Mild degenerative changes elsewhere in the cervical spine. Lung apices clear. IMPRESSION: Layering fluid and extensive mucosal thickening in the bilateral maxillary and sphenoid sinuses and ethmoid air cells could suggest acute sinusitis. Correlate clinically. Electronically signed by: Carroll Shaver M.D. 08/27/2017 7:31 PM Dictated Date/Time: 08/27/2017 7:28 PM
[2017-08-27 19:49] VITALS: Ht 172.7 cm; Wt 100.0 kg
[2017-08-27 20:30] VITALS: BP 87/59; PULSE 91; TEMP 36.5; O2SAT 100
[2017-08-27] MEDS: SODIUM CHLORIDE 0.9% 1000ML 1,000 ML IV SCH (21:16)
[2017-08-27] MEDS: SUCRALFATE 1 GM/10 ML UDC PO SCH (21:17)
[2017-08-27 21:58] LABS: INR 1.2 (0.9-1.1)
[2017-08-27] MEDS: PANTOprazole INJ 40 MG in SYRINGE 0 ML IV SCH (21:59)
[2017-08-27 22:35] VITALS: BP_SYST 85; BP_SYST 86; BP_DIAS 52; BP_DIAS 54; PULSE 94; PULSE 99
[2017-08-27 23:20] VITALS: BP 79/49; PULSE 78; TEMP 36.5; O2SAT 96
[2017-08-28] VITALS (7 sets, daily range): BP systolic 71–93; BP diastolic 49–60; PULSE 64–87; TEMP 36.3–36.9; O2SAT 97–100
--- NOTE | 2017-08-28 01:38 | Surgery Consultation ---
Consultation Date of Consultation: Aug 28, 2017. Attending Physician: Dannie Mathew M.D. History of Present Illness The patient is a 62 year old male who presents to the Emergency Room with complaints of lightheadedness, weakness, and difficulty swallowing for the past 10 days. Reports 15lbs weight loss during this time and has continued his daily peritoneal dialysis as usual without any modifications. He meets monthly with his grants specialist and is due to meet next week. Patient reports that it has become so painful and difficult to swallow that he has only been sipping small amounts of water. Denies f/c, cough, congestion, n/v, diarrhea, CP, SOB, GARCIA. I saw pt at bedside, I reviewed pt's H/P with pt, pt denies abdominal pain, no nausea, no vomiting, no fever. Past Medical/Surgical History Medical Problems: (1) Abdominal pain Status: Acute (2) Dehydration Status: Acute (3) Dysphagia Status: Acute (4) Hyponatremia Status: Acute (5) Near syncope Status: Acute Family History Diabetes mellitus Hypertension Social History Smoking Status: Never Smoker Smokeless Tobacco Use: No Alcohol Use: none Drug Use: none Marital Status: Occupation Status: employed Allergies Coded Allergies: Cephalosporins (Verified Allergy, Unknown, KEFLEX, 06/01/17) Penicillins (Verified Allergy, Unknown, ALSO AUGMENTIN, 06/01/17) Home Medications Scheduled Doxycycline Hyclate (Vibramycin), 100 MG PO DAILY Felodipine (Plendil), 10 MG PO DAILY Levothyroxine Sodium (Synthroid), 150 MCG PO DAILY Polyethylene (Miralax), 17 GM PO DAILY Ranitidine (Zantac), 150 MG PO BID Simvastatin (Zocor), 20 MG PO QPM Vitamin B Cmplx/Vitc/Folic Ac (Nephrocaps), 1 CAP PO DAILY Scheduled PRN Acetaminophen (Tylenol), 1,000 MG PO Q6 PRN for Pain Current Inpatient Medications Current Inpatient Medications Medications (Trade) Dose Ordered Sig/Maranda Route Start Time Stop Time Status Last Admin Dose Admin Ioversol (Optiray 320) 100 ml UD PRN IV 08/27/17 16:45 08/31/17 16:44 Acetaminophen (Tylenol Tab) 1,000 mg Q6 PRN PO 08/27/17 18:45 09/26/17 18:44 Polyethylene (Miralax Powder Packet) 17 gm DAILY PO 08/28/17 09:00 09/27/17 08:59 Levothyroxine Sodium 75 mcg/ Syringe 3.75 ml @ 2 mls/min DAILY@09 IV 08/28/17 09:00 09/27/17 08:59 Al Hydrox/Mg Hydrox/Simethicone (Maalox Max Susp) 15 ml Q4H PRN PO 08/27/17 19:15 09/26/17 19:14 Magnesium Hydroxide (Milk Of Magnesia Susp) 30 ml Q6H PRN PO 08/27/17 19:15 09/26/17 19:14 Polyethylene (Miralax Powder Packet) 17 gm DAILY PRN PO 08/27/17 19:15 09/26/17 19:14 Ondansetron HCl (Zofran Inj) 4 mg Q6H PRN IV 08/27/17 19:15 09/26/17 19:14 Heparin Sodium (Porcine) (Heparin Sq 5000 Unit/0.5ml) 5,000 unit Q12H SQ 08/27/17 22:00 09/26/17 21:59 Sodium Chloride 1,000 ml @ 100 mls/hr Q10H IV 08/27/17 21:00 09/26/17 20:59 08/27/17 21:16 100 MLS/HR Sucralfate (Carafate Susp) 1 gm QID PO 08/27/17 21:00 09/26/17 20:59 08/27/17 21:17 1 GM Pantoprazole Sodium 40 mg/ Syringe 10 ml @ 5 mls/min DAILY@, IV 08/27/17 21:00 09/26/17 20:59 08/27/17 21:59 5 MLS/MIN Review of Systems Constitutional: No fever, No chills, No sweats, No weight loss, No weakness, No fatigue, No problem reported Eyes: No worsening of vision, No eye pain, No redness, No discharge, No diplopia, No problem reported ENT: No hearing loss, No unusual epistaxis, No nasal symptoms, No sore throat, No tinnitus, No dental problems, No trouble swallowing, No problem reported Respiratory: No cough, No sputum, No wheezing, No shortness of breath, No dyspnea on exertion, No dyspnea at rest, No hemoptysis, No problem reported Cardiovascular: No chest pain, No orthopnea, No PND, No edema, No claudication , No palpitations, No problem reported Abdomen: No pain, No nausea, No vomiting, No diarrhea, No constipation, No GI bleeding, No problem reported Musculoskeletal: No joint pain, No muscle pain, No swelling, No calf pain, No problem reported Genitourinary - Male: + problem reported (renal failure) Neurologic: No memory loss, No paralysis, No weakness, No numbness/tingling, No vertigo, No balance problems, No problem reported Psychiatric: No depression symptoms, No anhedonism, No anxiety, No insomnia, No substance abuse, No problem reported Endocrine: No fatigue, No excessive thirst, No excessive urination, No problem reported Hematologic / Lymphatic: No abnormal bleeding/bruising, No clotting problems, No swollen lymph nodes, No night sweats, No problem reported Physical Exam Date Time Temp Pulse Resp B/P (MAP) Pulse Ox O2 Delivery O2 Flow Rate FiO2 08/27/17 23:20 36.5 78 18 79/49 (59) 96 Room Air 08/27/17 22:35 94 85/54 (64) 99 86/52 (63) 08/27/17 20:30 36.5 91 19 87/59 (68) 100 Room Air 08/27/17 19:49 Room Air 08/27/17 19:14 86 18 85/60 98 Room Air 08/27/17 17:48 84 21 100 08/27/17 17:18 86 23 08/27/17 16:48 82 15 100 08/27/17 16:36 92 20 82/64 99 Room Air 08/27/17 16:36 82/64 08/27/17 16:18 89 12 08/27/17 15:48 92 16 08/27/17 15:18 93 10 08/27/17 15:13 95 18 72/54 97 Room Air 08/27/17 15:12 91 23 08/27/17 14:27 89 19 08/27/17 14:22 89 10 08/27/17 14:19 93 08/27/17 14:17 93 13 08/27/17 14:12 94 30 08/27/17 14:09 96 Room Air 08/27/17 14:07 96 10 08/27/17 14:02 94 15 08/27/17 13:34 36.5 101 20 66/49 96 General Appearance: WD/WN, no apparent distress Head: normocephalic Eyes: normal inspection ENT: normal ENT inspection Neck: supple, no JVD Respiratory/Chest: chest non-tender, lungs clear Cardiovascular: regular rate, rhythm, no edema, no gallop, no JVD, no murmur Abdomen/GI: normal bowel sounds, non tender, soft, no organomegaly, no pulsatile mass (dialysis catheter at right side abdomen) Extremities/Musculoskelatal: normal inspection, + pedal edema, + swelling Neurologic/Psych: no motor/sensory deficits, alert, normal mood/affect Skin: normal color, warm/dry, no rash Laboratory Results Last 24 Hours Test 08/27/17 13:45 08/27/17 14:20 08/27/17 20:43 White Blood Count 9.13 K/uL Red Blood Count 3.95 M/uL Hemoglobin 13.2 g/dL Hematocrit 38.6 % Mean Corpuscular Volume 97.7 fL Mean Corpuscular Hemoglobin 33.4 pg Mean Corpuscular Hemoglobin Concent 34.2 g/dl Platelet Count 299 K/uL Mean Platelet Volume 10.5 fL Neutrophils (%) (Auto) 75.7 % Lymphocytes (%) (Auto) 12.0 % Monocytes (%) (Auto) 11.0 % Eosinophils (%) (Auto) 0.4 % Basophils (%) (Auto) 0.2 % Neutrophils # (Auto) 6.91 K/uL Lymphocytes # (Auto) 1.10 K/uL Monocytes # (Auto) 1.00 K/uL Eosinophils # (Auto) 0.04 K/uL Basophils # (Auto) 0.02 K/uL RDW Standard Deviation 54.1 fL RDW Coefficient of Variation 15.5 % Immature Granulocyte % (Auto) 0.7 % Immature Granulocyte # (Auto) 0.06 K/uL Prothrombin Time 12.1 SECONDS Prothromb Time International Ratio 1.2 Sodium Level 129 mmol/L Potassium Level 4.8 mmol/L Chloride Level 88 mmol/L Carbon Dioxide Level 25 mmol/L Anion Gap 16.0 mmol/L Blood Urea Nitrogen 80 mg/dl Creatinine 15.10 mg/dl Est Creatinine Clear Calc Drug Dose 5.7 ml/min Estimated GFR () 3.4 Estimated GFR (Non- 3.0 BUN/Creatinine Ratio 5.3 Random Glucose 162 mg/dl Osmolality 314 mOsm/kg Calcium Level 9.5 mg/dl Phosphorus Level 8.0 mg/dl Magnesium Level 2.9 mg/dl Total Bilirubin 1.2 mg/dl Direct Bilirubin 0.1 mg/dl Aspartate Amino Transf (AST/SGOT) 42 U/L Alanine Aminotransferase (ALT/SGPT) 67 U/L Alkaline Phosphatase 113 U/L Troponin I < 0.015 ng/ml Total Protein 8.2 gm/dl Albumin 3.4 gm/dl Lipase 351 U/L Influenza Type A Antigen Neg for Influ A Influenza Type B Antigen Neg for Influ B Bedside Glucose 91 mg/dl Assessment & Plan CT scan- FINDINGS: Dba Manager topogram: Unremarkable. Lung bases: Minimal basilar opacities, likely atelectasis. Multichamber enlargement of the heart. Coronary artery calcification. No pericardial or pleural effusion. Liver: Normal morphology. No liver lesion. Patent hepatic vasculature. Biliary: No intrahepatic or extrahepatic biliary ductal dilatation. Gallbladder contains gallstones. Pancreas: Mild parenchymal atrophy. Spleen: Normal. Adrenal glands: Subcentimeter nodule in the right adrenal gland new from prior exam, indeterminate. Left adrenal gland normal. Kidneys and ureters: Extensive atrophy of the bilateral kidneys. No hydronephrosis. Hypodense lesion in the medial aspect of the interpolar region of the left kidney indeterminate but likely simple cyst. Bladder: Incompletely evaluated secondary to underdistention. Pelvic organs: Prostate enlargement likely secondary to benign prostatic hyperplasia. Bowel: Oral contrast has transited to the rectum. Anastomotic suture lines evident in the region of the upper rectum likely indicating prior sigmoidectomy. Few diverticula in the distal descending colon. No extraluminal oral contrast is evident. The appendix is normal. No bowel obstruction. Postsurgical changes of gastric sleeve procedure. Peritoneal cavity: Free intraperitoneal gas evident primarily in the right upper quadrant. A surgical drain terminates in the right paracolic gutter. This may indicate recent surgical intervention and expected postsurgical intraperitoneal gas. Lymph nodes: No enlarged lymph nodes in the abdomen or pelvis. Vasculature: Atherosclerosis of the normal caliber abdominal aorta. IVC patent. Abdominal wall: No fluid along the course of the right anterior abdominal drain. Musculoskeletal: Degenerative changes of the spine. Bilateral pars defects of L5. IMPRESSION: 1. Free intraperitoneal gas may relate to recent surgery given the presence of a right paracolic gutter surgical drain. Correlate with recent surgical history. 2. Postsurgical changes of sigmoidectomy with colocolonic anastomosis. No bowel obstruction or extraluminal oral contrast. 3. Subcentimeter indeterminate right adrenal nodule new since 2007. Assessment: The patient is a 62 year old male who presents to the Emergency Room with complaints of lightheadedness, weakness, and difficulty swallowing for the past 10 days. IMP: Free intraperitoneal gas may relate to recent surgery given the presence of dialysis catheter, base on pt has no abdominal pain, normal WBC, unlikely bowel perforation, at this moment, no surgical indication, sign off today, please call us if nay questions. thanks.
[2017-08-28] MEDS: SODIUM CHLORIDE 0.9% 1000ML 1,000 ML IV SCH ×2 (07:08→17:32)
[2017-08-28] MEDS: HEPARIN SOD 5000 UNIT/0.5 ML CARP SQ SCH ×3 (07:09→21:40)
[2017-08-28] MEDS: POLYETHYLENE (MIRALAX) 17 GM PACK PO SCH (07:13)
[2017-08-28] MEDS: SUCRALFATE 1 GM/10 ML UDC PO SCH ×4 (07:14→21:18)
[2017-08-28 08:37] LABS: HEMATOCRIT 32.7 % (42-52); MEAN CELL VOLUME 99.1 fL (80-100); MEAN CORPUSCULAR HEMOGLOBIN 33.3 pg (25-34); MEAN CORPUSCULAR HGB CONC 33.6 g/dl (32-36); MEAN PLATELET VOLUME 10.5 fL (7.4-10.4); PLATELET COUNT 219 K/uL (130-400); RED CELL DISTRIBUTION WIDTH CV 15.6 % (11.5-14.5); RED CELL DISTRIBUTION WIDTH SD 55.2 fL (36.4-46.3); WHITE BLOOD COUNT 5.98 K/uL (4.8-10.8)
[2017-08-28] MEDS: LEVOTHYROXINE SODIUM INJ 75 MCG in SYRINGE 0 ML IV SCH (08:55)
[2017-08-28] MEDS: PANTOprazole INJ 40 MG in SYRINGE 0 ML IV SCH ×2 (08:56→21:18)
[2017-08-28 09:08] LABS: CALCIUM 8.3 mg/dl (8.5-10.1); CREATININE 14.7 mg/dl (0.60-1.40); POTASSIUM 4.5 mmol/L (3.5-5.1)
--- NOTE | 2017-08-28 12:10 | Nephrology Consultation ---
Nephrology Consultation Date & Providers Date of Consultation: Aug 28, 2017. Primary Care Provider: Jeff Brown M.D. Referring Provider: Reason for Consultation ESRD on NCCPD History of Present Illness Mr. Cary was seen & examined at the request of Dr. Mathew to provide NCCPD therapy during his hospitalization. Medical records in the EMR were reviewed and are summarized as follows: Mr. Cary has ESRD due to diabetic nephropathy and hypertensive nephrosclerosis. He has been on NCCPD therapy since 2016. He also remains active on the DDRT list at [facility] and has accrued 2 yrs wait time. Mr. Cary's medical history is significant for AODM, HTN, kidney stones, BPH, LVH w/ MR, gout and obesity. In 06/11 Mr. Cary underwent surgical creation of a gastric sleeve at [facility]. His weight dropped from 286 lbs to 230 lbs. 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 Mr. Cary reports that he has suffered from an URTI and odynophagia for the last 1 - 2 weeks. He has completed Doxycycline therapy but his painful swallowing has persisted. He has not been able to keep down liquids. He presented to the ED last night where he was found to be dehydrated. Mr. Cary was admitted to the hospital for IV hydration and GI evaluation. Past Medical/Surgical History Medical: # ESRD due to diabetic nephropathy and hypertensive nephrosclerosis (NCCPD: evening pause exchange 1800 cc, then 7 exchanges overnight 2650 cc fill / 2500 cc drain. Dwell time 1 hr 15 min. LBO 2000 cc. EDW 105 kg / 230 lbs) # AODM (Hgb A1c > 7 % prior to gastric sleeve surgery) - no retinopathy # HTN # Obesity s/p gastric sleeve at [facility] 06/11 # Microscopic hematuria - cystoscopy w/ retrograde [address] Lee negative for bladder lesion # Nephrolithiasis - remote # BPH # LVH w/ MR # Gout # Anxiety / depression Surgical: # Obesity s/p gastric sleeve at [facility] 06/11 # L arm AVF 09/10 # PD catheter insertion 09/[address] Dudley Allergies Coded Allergies: Cephalosporins (Verified Allergy, Unknown, KEFLEX, 06/01/17) Penicillins (Verified Allergy, Unknown, ALSO AUGMENTIN, 06/01/17) Inpatient Medications Current Inpatient Medications Medications (Trade) Dose Ordered Sig/Maranda Route Start Time Stop Time Status Last Admin Dose Admin Ioversol (Optiray 320) 100 ml UD PRN IV 08/27/17 16:45 08/31/17 16:44 Acetaminophen (Tylenol Tab) 1,000 mg Q6 PRN PO 08/27/17 18:45 09/26/17 18:44 Polyethylene (Miralax Powder Packet) 17 gm DAILY PO 08/28/17 09:00 09/27/17 08:59 08/28/17 07:13 17 GM Levothyroxine Sodium 75 mcg/ Syringe 3.75 ml @ 2 mls/min DAILY@ IV 08/28/17 09:00 09/27/17 08:59 08/28/17 08:55 2 MLS/MIN Al Hydrox/Mg Hydrox/Simethicone (Maalox Max Susp) 15 ml Q4H PRN PO 08/27/17 19:15 09/26/17 19:14 Magnesium Hydroxide (Milk Of Magnesia Susp) 30 ml Q6H PRN PO 08/27/17 19:15 09/26/17 19:14 Polyethylene (Miralax Powder Packet) 17 gm DAILY PRN PO 08/27/17 19:15 09/26/17 19:14 Ondansetron HCl (Zofran Inj) 4 mg Q6H PRN IV 08/27/17 19:15 09/26/17 19:14 Heparin Sodium (Porcine) (Heparin Sq 5000 Unit/0.5ml) 5,000 unit Q12H SQ 08/27/17 22:00 09/26/17 21:59 08/28/17 08:57 5,000 UNIT Sodium Chloride 1,000 ml @ 100 mls/hr Q10H IV 08/27/17 21:00 09/26/17 20:59 08/28/17 07:08 100 MLS/HR Sucralfate (Carafate Susp) 1 gm QID PO 08/27/17 21:00 09/26/17 20:59 08/28/17 07:14 1 GM Pantoprazole Sodium 40 mg/ Syringe 10 ml @ 5 mls/min DAILY@09,21 IV 08/27/17 21:00 09/26/17 20:59 08/28/17 08:56 5 MLS/MIN Family History Diabetes mellitus Hypertension Negative for CKD / ESRD Social History Smoking Status: Never Smoker Smokeless Tobacco Use: No Alcohol Use: none Drug Use: none Marital Status: Housing Status: lives with family 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 Never a smoker. Review of Systems Constitutional: No fever Respiratory: No cough, No shortness of breath Cardiovascular: No chest pain Abdomen: No pain, No nausea, No vomiting A complete review of systems was performed. Pertinent positives are noted above. All other systems are negative. Physical Exam Date Time Temp Pulse Resp B/P (MAP) Pulse Ox O2 Delivery O2 Flow Rate FiO2 08/28/17 07:16 36.3 64 20 88/58 (68) 97 Room Air 08/28/17 00:00 98 Room Air 08/27/17 23:20 36.5 78 18 79/49 (59) 96 Room Air 08/27/17 22:35 94 85/54 (64) 99 86/52 (63) 08/27/17 20:30 36.5 91 19 87/59 (68) 100 Room Air 08/27/17 19:49 Room Air 08/27/17 19:14 86 18 85/60 98 Room Air 08/27/17 17:48 84 21 100 08/27/17 17:18 86 23 08/27/17 16:48 82 15 100 08/27/17 16:36 92 20 82/64 99 Room Air 08/27/17 16:36 82/64 08/27/17 16:18 89 12 08/27/17 15:48 92 16 08/27/17 15:18 93 10 08/27/17 15:13 95 18 72/54 97 Room Air 08/27/17 15:12 91 23 08/27/17 14:27 89 19 08/27/17 14:22 89 10 08/27/17 14:19 93 08/27/17 14:17 93 13 08/27/17 14:12 94 30 08/27/17 14:09 96 Room Air 08/27/17 14:07 96 10 08/27/17 14:02 94 15 08/27/17 13:34 36.5 101 20 66/49 96 General Appearance: no apparent distress Head: normocephalic, atraumatic Eyes: PERRL, EOMI ENT: pharynx normal Neck: no adenopathy Respiratory/Chest: lungs clear, no respiratory distress Cardiovascular: regular rate, rhythm Abdomen/GI: normal bowel sounds, non tender, soft, + pertinent finding (PD exit site w/ clean dry dressing in place) Extremities/Musculoskelatal: no calf tenderness, no pedal edema, + pertinent finding (AVF + bruit) Neurologic/Psych: alert, oriented x 3 Skin: warm/dry Laboratory Results Last 24 Hours Test 08/27/17 13:45 08/27/17 14:20 08/27/17 20:43 08/28/17 08:23 White Blood Count 9.13 K/uL 5.98 K/uL Red Blood Count 3.95 M/uL 3.30 M/uL Hemoglobin 13.2 g/dL 11.0 g/dL Hematocrit 38.6 % 32.7 % Mean Corpuscular Volume 97.7 fL 99.1 fL Mean Corpuscular Hemoglobin 33.4 pg 33.3 pg Mean Corpuscular Hemoglobin Concent 34.2 g/dl 33.6 g/dl Platelet Count 299 K/uL 219 K/uL Mean Platelet Volume 10.5 fL 10.5 fL Neutrophils (%) (Auto) 75.7 % Lymphocytes (%) (Auto) 12.0 % Monocytes (%) (Auto) 11.0 % Eosinophils (%) (Auto) 0.4 % Basophils (%) (Auto) 0.2 % Neutrophils # (Auto) 6.91 K/uL Lymphocytes # (Auto) 1.10 K/uL Monocytes # (Auto) 1.00 K/uL Eosinophils # (Auto) 0.04 K/uL Basophils # (Auto) 0.02 K/uL RDW Standard Deviation 54.1 fL 55.2 fL RDW Coefficient of Variation 15.5 % 15.6 % Immature Granulocyte % (Auto) 0.7 % Immature Granulocyte # (Auto) 0.06 K/uL Prothrombin Time 12.1 SECONDS Prothromb Time International Ratio 1.2 Sodium Level 129 mmol/L 131 mmol/L Potassium Level 4.8 mmol/L 4.5 mmol/L Chloride Level 88 mmol/L 94 mmol/L Carbon Dioxide Level 25 mmol/L 20 mmol/L Anion Gap 16.0 mmol/L 17.0 mmol/L Blood Urea Nitrogen 80 mg/dl 82 mg/dl Creatinine 15.10 mg/dl 14.70 mg/dl Est Creatinine Clear Calc Drug Dose 5.7 ml/min 5.9 ml/min Estimated GFR () 3.4 3.6 Estimated GFR (Non- 3.0 3.1 BUN/Creatinine Ratio 5.3 5.6 Random Glucose 162 mg/dl 122 mg/dl Osmolality 314 mOsm/kg Calcium Level 9.5 mg/dl 8.3 mg/dl Phosphorus Level 8.0 mg/dl Magnesium Level 2.9 mg/dl 2.8 mg/dl Total Bilirubin 1.2 mg/dl Direct Bilirubin 0.1 mg/dl Aspartate Amino Transf (AST/SGOT) 42 U/L Alanine Aminotransferase (ALT/SGPT) 67 U/L Alkaline Phosphatase 113 U/L Troponin I < 0.015 ng/ml Total Protein 8.2 gm/dl Albumin 3.4 gm/dl Lipase 351 U/L Influenza Type A Antigen Neg for Influ A Influenza Type B Antigen Neg for Influ B Bedside Glucose 91 mg/dl Chemistry Specimen Hemolysis Impression (1) Odynophagia (2) Dehydration (3) End-stage renal disease on peritoneal dialysis (4) Obesity (5) Status following gastric banding surgery for weight loss Recommendations END STAGE RENAL DISEASE: -- Patient is a low transporter -- Will provide NCCPD tonight to help correct electrolytes. Will provide 4 exchanges overnight and lengthen dwell time to 2 hours to avoid excessive UF -- PD orders entered into EMR and HD RN notified DEHYDRATION: -- Continue gentle hydration. Will d/c IVF at 8 pm tonight -- Will order orthostatic bp & pulse now and in am ODYNOPHAGIA: -- Agree w/ starting PPI therapy -- DDx includes infection, ulcer and stricture -- Await GI recommendations. Patient may require EGD
[2017-08-28] MEDS ORDERED: NURSING DECISION MEDICATION ORDER SCH (15:30)
[2017-08-28] MEDS ORDERED: COUGH DROP (SUGAR FREE) LOZ 24 LOZ/1 BOX LOZ PRN (15:30)
--- NOTE | 2017-08-28 16:55 | GASTROINTESTINAL CONSULTATION ---
DATE OF CONSULTATION: 08/28/2017 REASON FOR EVALUATION: Painful swallowing. HISTORY OF PRESENT ILLNESS: The patient is a 62-year-old patient of descent who has chronic renal failure and is on peritoneal dialysis. I have seen him in the past in the office for change in bowel habits, particularly from constipation, which has been managed as an outpatient. The patient has been taking Zithromax and then doxycycline for chronic sinus infection that has since failed to resolve. While he is on doxycycline, he began experiencing pain with swallowing and has had not eaten anything for 10-14 days. He presented to the hospital very dehydrated with a creatinine of 15, sodium of 129. Since being hospitalized, he is fine, he has been placed on IV Protonix, p.o. Carafate and some viscous Xylocaine as needed and today the pain in his esophagus has resolved and he has actually been eating quite a bit of solid food today. Underlying this; however, his sinus infection has remained unresolved and I suspect that his sinuses need to be drained in order to resolve the infection. PAST MEDICAL HISTORY: Remarkable for renal failure, on peritoneal dialysis; constipation, elevated lipids, and hypertension. MEDICATIONS: Plendil, Synthroid, MiraLax, Zantac, Zocor, Nephrocaps, and doxycycline. ALLERGIES: CEPHALOSPORINS AND PENICILLIN. FAMILY HISTORY: Positive for diabetes, hypertension. SOCIAL HISTORY: The patient is and lives with his family. He works at [employer]. He does not smoke. REVIEW OF SYSTEMS: Negative for 12 systems at this time. PHYSICAL EXAMINATION: GENERAL: The patient appears awake, alert, in no acute distress. VITAL SIGNS: Blood pressure is 84/62, pulse 84. HEENT: He has a little bit of facial puffiness. NEUROLOGIC: Nonfocal. IMPRESSION AND PLAN: The patient is undoubtedly had an ulcer in his esophagus from the doxycycline, which is a common side effect of this medication and his symptoms are very typical. Fortunately, he appears to be improving symptomatically with the treatment that has already been instituted. I would avoid now any acidy or spicy foods for the next week or two until it completely heals. I think the underlying problem; however, is that his sinus infection remains uncured and may need to be drained to allow antibiotics to penetrate enough to cure the infection. I am kind of concerned that if we let him go home without being evaluated, he may need to go back on antibiotics and he may end up back in the same situation. Because of this, I plan on initiating an ENT consult to evaluate his sinus problem. I will follow the patient during his hospital stay.
[2017-08-28] MEDS ORDERED: NURSING VERBAL MED ORDER ONE (19:45)
[2017-08-28] MEDS: FLUTICASONE PROPIONATE NA SPR 16 GM BTL SCH (19:59)
[2017-08-29 07:11] VITALS: BP 95/60; PULSE 62; TEMP 36.4; O2SAT 98
[2017-08-29 07:58] VITALS: BP 95/60; PULSE 62; TEMP 36.4
[2017-08-29 08:00] VITALS: O2SAT 98
--- NOTE | 2017-08-29 08:18 | Progress Note ---
Subjective Date of Service: Aug 28, 2017. Problem List Medical Problems: (1) Abdominal pain Status: Acute (2) Dehydration Status: Acute (3) Dysphagia Status: Acute (4) Hyponatremia Status: Acute (5) Near syncope Status: Acute Objective Vital Signs Date Time Temp Pulse Resp B/P (MAP) Pulse Ox O2 Delivery O2 Flow Rate FiO2 08/29/17 07:58 36.4 62 16 95/60 (72) 08/29/17 07:11 36.4 62 16 95/60 (72) 98 Room Air 08/29/17 00:00 Room Air 08/28/17 23:02 36.9 87 18 83/49 (60) 97 Room Air 08/28/17 20:00 Room Air 08/28/17 19:55 36.7 80 88/56 (67) 08/28/17 16:00 100 Room Air 08/28/17 15:57 36.5 78 18 93/60 (71) 100 Room Air 78 71/53 (59) Laboratory Results Last 24 Hours Test 08/28/17 08:23 08/28/17 14:21 08/29/17 07:40 White Blood Count 5.98 K/uL Red Blood Count 3.30 M/uL Hemoglobin 11.0 g/dL Hematocrit 32.7 % Mean Corpuscular Volume 99.1 fL Mean Corpuscular Hemoglobin 33.3 pg Mean Corpuscular Hemoglobin Concent 33.6 g/dl RDW Standard Deviation 55.2 fL RDW Coefficient of Variation 15.6 % Platelet Count 219 K/uL Mean Platelet Volume 10.5 fL Sodium Level 131 mmol/L Potassium Level 4.5 mmol/L Chloride Level 94 mmol/L Carbon Dioxide Level 20 mmol/L Anion Gap 17.0 mmol/L Blood Urea Nitrogen 82 mg/dl Creatinine 14.70 mg/dl Est Creatinine Clear Calc Drug Dose 5.9 ml/min Estimated GFR () 3.6 Estimated GFR (Non- 3.1 BUN/Creatinine Ratio 5.6 Random Glucose 122 mg/dl Calcium Level 8.3 mg/dl Magnesium Level 2.8 mg/dl Chemistry Specimen Hemolysis Hepatitis B Surface Antigen NEG Hepatitis B Surface Antibody POS
[2017-08-29] MEDS: POLYETHYLENE (MIRALAX) 17 GM PACK PO SCH (09:00)
[2017-08-29] MEDS ORDERED: SODIUM CHLORIDE 0.65% NA SOLN 45 ML (OCEAN) SCH (09:00)
[2017-08-29 09:02] LABS: CALCIUM 8.3 mg/dl (8.5-10.1); POTASSIUM 4.2 mmol/L (3.5-5.1)
[2017-08-29] MEDS: PANTOprazole INJ 40 MG in SYRINGE 0 ML IV SCH (09:10)
[2017-08-29] MEDS: FLUTICASONE PROPIONATE NA SPR 16 GM BTL SCH (09:11)
[2017-08-29] MEDS: SUCRALFATE 1 GM/10 ML UDC PO SCH ×3 (09:11→17:55)
[2017-08-29] MEDS: HEPARIN SOD 5000 UNIT/0.5 ML CARP SQ SCH (10:32)
[2017-08-29] MEDS: LEVOTHYROXINE SODIUM INJ 75 MCG in SYRINGE 0 ML IV SCH (10:32)
--- NOTE | 2017-08-29 11:22 | Nephrology Progress Note ---
Nephrology Progress Note Date of Service Aug 29, 2017. Chief Complaint Follow-up for end-stage renal disease on peritoneal dialysis. Subjective Cruz was seen and examined in his room this morning. Has been otherwise feeling better, swallowing difficulty is improving and he is eating better. Dialysis went well, had 1.5 liters UF, tolerated well. Blood pressure relatively soft but asymptomatic. Continues to have high BUN /creatinine. Electrolyte acceptable. Review of Systems A complete review of systems was performed. Pertinent positives are noted above. All other systems are negative. Vital Signs Last 8 Hrs Date Time Temp Pulse Resp B/P (MAP) Pulse Ox O2 Delivery O2 Flow Rate FiO2 08/29/17 07:58 36.4 62 16 95/60 (72) 08/29/17 07:11 36.4 62 16 95/60 (72) 98 Room Air Last Recorded Weight Weight (Kilograms): 100.000 Physical Exam GENERAL: Middle-aged male, AAA x 3, pleasant, healthy-appearing, not in any distress. NECK: Supple, no JVD. RESPIRATORY: Normal breathing efforts, no accessory muscle use, clear to auscultation bilaterally, no wheezes or rales. CARDIOVASCULAR: S1, S2 normal, rate rhythm regular. ABDOMEN: Soft nontender, PD catheter area nontender no erythema or sign of infection. EXTREMITY: Trace bilateral lower extremity edema NEURO: speech fluent. 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 Never a smoker. Laboratory Results Past 24 Hours 08/29/17 07:40 Test 08/28/17 14:21 08/29/17 07:40 Hepatitis B Surface Antigen NEG (NEG) Hepatitis B Surface Antibody POS Anion Gap 14.0 mmol/L (3-11) Est Creatinine Clear Calc Drug Dose 5.7 ml/min Estimated GFR () 3.5 Estimated GFR (Non- 3.0 BUN/Creatinine Ratio 5.5 (10-20) Calcium Level 8.3 mg/dl (8.5-10.1) Allergies Coded Allergies: Cephalosporins (Verified Allergy, Unknown, KEFLEX, 06/01/17) Penicillins (Verified Allergy, Unknown, ALSO AUGMENTIN, 06/01/17) Medications Current Inpatient Medications Medications (Trade) Dose Ordered Sig/Maranda Route Start Time Stop Time Status Last Admin Dose Admin Ioversol (Optiray 320) 100 ml UD PRN IV 08/27/17 16:45 08/31/17 16:44 Acetaminophen (Tylenol Tab) 1,000 mg Q6 PRN PO 08/27/17 18:45 09/26/17 18:44 Polyethylene (Miralax Powder Packet) 17 gm DAILY PO 08/28/17 09:00 09/27/17 08:59 08/28/17 07:13 17 GM Levothyroxine Sodium 75 mcg/ Syringe 3.75 ml @ 2 mls/min DAILY@ IV 08/28/17 09:00 09/27/17 08:59 08/28/17 08:55 2 MLS/MIN Al Hydrox/Mg Hydrox/Simethicone (Maalox Max Susp) 15 ml Q4H PRN PO 08/27/17 19:15 09/26/17 19:14 Magnesium Hydroxide (Milk Of Magnesia Susp) 30 ml Q6H PRN PO 08/27/17 19:15 09/26/17 19:14 Polyethylene (Miralax Powder Packet) 17 gm DAILY PRN PO 08/27/17 19:15 09/26/17 19:14 Ondansetron HCl (Zofran Inj) 4 mg Q6H PRN IV 08/27/17 19:15 09/26/17 19:14 Heparin Sodium (Porcine) (Heparin Sq 5000 Unit/0.5ml) 5,000 unit Q12H SQ 08/27/17 22:00 09/26/17 21:59 08/28/17 21:40 5,000 UNIT Sucralfate (Carafate Susp) 1 gm QID PO 08/27/17 21:00 09/26/17 20:59 08/29/17 09:11 1 GM Pantoprazole Sodium 40 mg/ Syringe 10 ml @ 5 mls/min DAILY@ IV 08/27/17 21:00 09/26/17 20:59 08/29/17 09:10 5 MLS/MIN Menthol (Nice Margo) 1 margo PRN PRN MARGO 08/28/17 15:30 09/27/17 15:29 Fluticasone Propionate (Flonase Nasal [place]) 2 sprays DAILY NA 08/28/17 20:00 09/27/17 19:59 08/29/17 09:11 2 SPRAYS Sodium Chloride ([place] Nasal [place]) 1 sprays DAILY NA 08/29/17 09:00 09/28/17 08:59 Impression (1) Odynophagia (2) Dehydration (3) End-stage renal disease on peritoneal dialysis (4) Obesity (5) Status following gastric banding surgery for weight loss Recommendations -- Patient is a low transporter -- Will provide 5 exchanges overnight and lengthen dwell time to 1.5 hours to avoid excessive UF -- PD orders entered into EMR and HD RN notified -- on PPI therapy -- awaiting ENT evaluation for chronic sinusitis Will follow
--- NOTE | 2017-08-29 12:06 | ENT CONSULTATION ---
DATE OF ADMISSION: 08/27/2017 DIAGNOSIS: Acute sinusitis, improving. HISTORY OF PRESENT ILLNESS: A 62-year-old male who became dehydrated and weak last week because of difficulty swallowing for 10 days and lost 10 pounds. He did have a sinus infection 3 weeks ago and is on his second antibiotic which is doxycycline and he states the sinuses are improving. PAST MEDICAL HISTORY: Pertinent for end-stage renal disease on daily peritoneal dialysis. FAMILY HISTORY: Negative. SOCIAL HISTORY: Nonsmoker. ALLERGIES: PENICILLIN AND CEPHALOSPORIN. PHYSICAL EXAMINATION: GENERAL: WNWD male in no acute distress. HEAD: Normocephalic. EYES: Normal. EARS: Normal. NOSE: Nasal passages are patent with some ulcerations on the septum; however, there are no sign of polyps or lesions. The mucus is thick and grayish but there is no green or yellow drainage. THROAT: Normal. NECK: Supple. IMPRESSION: Acute sinusitis, improving, after 3 weeks and on doxycycline. RECOMMENDATIONS: The patient should continue saline rinses and finish his doxycycline. I have asked them to contact me at my office if he does not continue to improve. At this point, there is no need for surgical intervention.
--- NOTE | 2017-08-29 12:21 | PROGRESS NOTE ---
DATE: 08/29/2017 SUBJECTIVE: The patient continues to remain in the hospital due to his electrolytes and kidney function disorder. 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 He is now eating solid food without difficulty. ENT consult was placed yesterday to evaluate his persistent sinusitis that required antibiotics and initiated his odynophagia. His consult is pending at this time. I will continue to check on the patient during his hospital stay.
[2017-08-29 15:34] VITALS: BP 106/77; PULSE 85; TEMP 36.5; O2SAT 98
[2017-08-29] MEDS ORDERED: SALI0.6510 (17:52)
[2017-08-29] MEDS ORDERED: FLNIN (17:52)
[2017-08-29] MEDS ORDERED: DOXY100C2 PO (17:52)
[2017-08-29] MEDS ORDERED: PANT1TAB3 PO (18:06)
--- NOTE | 2017-08-29 18:12 | Discharge Instructions ---
Discharge Instructions Date of Service Aug 29, 2017. Admission Reason for Admission: Acute Renal Failure, Odynophagia Discharge Discharge Diagnosis / Problem: Odynophagia, esophageal ulcer/ sinusitis Discharge Goals Goal(s): Decrease discomfort, Improve function Activity Recommendations Activity Limitations: resume your previous activity . Instructions / Follow-Up Instructions / Follow-Up Follow up with PCP in 1-2 weeks Follow up with Nephro as needed Continue with the saline spray In regards to the flonase: 2 sprays per nostril for one week, then 1 spray per nostril until symptoms resolve. Continue protonix for esophageal ulcer. May consider starting antbiotics on thursday if symptoms of cough are not improving. Current Hospital Diet Patient's current hospital diet: Renal Diet Discharge Diet Recommended Diet: Renal Diet Pending Studies Studies pending at discharge: no Medical Emergencies . Who to Call and When: Medical Emergencies: If at any time you feel your situation is an emergency, please call 911 immediately. . Non-Emergent Contact Non-Emergency issues call your: Primary Care Provider Call Non-Emergent contact if: you have any medication questions . . "Provider Documentation" section prepared by Scott Herrera. .
[2017-08-29 18:22] VITALS: BP 106/77; PULSE 85; TEMP 36.5; O2SAT 98
== END 2017-08-29 18:45 | disposition home or self-care (01) | DRG 380 ==
LOC: C.EDB 13:34 → C.MS2W 19:12 → EDBEDREQ 19:22 → ENRESERV 19:27 → C.MS2W 08-28 07:50
PROVIDERS: ADMIT Internal Medicine; ATTEND Internal Medicine
DX: K22.10 Ulcer of esophagus without bleeding (principal); N18.6 End stage renal disease; N17.9 Acute kidney failure, unspecified; I12.0 Hypertensive chronic kidney disease with stage 5 chronic kidney disease or end stage renal disease; T36.4X5A Adverse effect of tetracyclines, initial encounter; J01.90 Acute sinusitis, unspecified; I95.9 Hypotension, unspecified; E86.0 Dehydration; Z99.2 Dependence on renal dialysis; E11.22 Type 2 diabetes mellitus with diabetic chronic kidney disease; E03.9 Hypothyroidism, unspecified; E78.5 Hyperlipidemia, unspecified; E66.9 Obesity, unspecified; Z68.33 Body mass index [BMI] 33.0-33.9, adult; Z98.84 Bariatric surgery status; Z87.442 Personal history of urinary calculi; Z79.899 Other long term (current) drug therapy; Z88.0 Allergy status to penicillin; Z88.1 Allergy status to other antibiotic agents; Z83.3 Family history of diabetes mellitus; Z82.49 Family history of ischemic heart disease and other diseases of the circulatory system